=== PATIENT | female | born 1945 | race Caucasian/White ===

== ENCOUNTER → 2019-07-29 | Outpatient (REF) | payer MEDICARE, OTHER ==
[~2019-07-29] MED LIST: ATEN25TA PO; COUM2.5T17 PO; OMEP40CA2 PO; PERCOCET PO; SUPECAP24 PO; TYLE167L PO; TYLENOL XS; VITA100067 PO; [UNRECOGNIZED DRUG - OTHER] PO
[2019-07-29 15:20] LABS: CPK CREATINE PHOSPHOKINASE 48 U/L (26-192); TOTAL PROTEIN 6.9 GM/DL (6.4-8.2)
[2019-07-29 15:38] LABS: TOTAL 25(OH) VITAMIN D 45.3 NG/ML (30.0-100.0); VITAMIN B12 LEVEL 307 PG/ML (247-911)
[2019-07-29 15:39] LABS: FOLATE > 24.0 NG/ML (>5.4)
[2019-08-01 09:58] LABS: ALBUMIN 3.53 GM/DL (3.29-5.55); ALBUMIN % 51.2 % (55.8-66.1); ALPHA-1-GLOBULIN % 5.4 % (2.9-4.9); ALPHA-1-GLOBULINS 0.37 GM/DL (0.17-0.41); ALPHA-2-GLOBULINS 0.68 GM/DL (0.42-0.99); ALPHA-2-GLOBULINS % 9.9 % (7.1-11.8); BETA-1-GLOBULINS 0.42 GM/DL (0.28-0.60); BETA-1-GLOBULINS % 6.1 % (4.7-7.2); BETA-2-GLOBULINS 0.43 GM/DL (0.19-0.55); BETA-2-GLOBULINS % 6.2 % (3.2-6.5); GAMMA GLOBULIN % 21.2 % (11.1-18.8); GAMMA GLOBULINS 1.46 GM/DL (0.65-1.58)
[2019-08-04 00:06] LABS: CERULOPLASMIN 20.5 mg/dL (19.0-39.0); VITAMIN B1 LEVEL WHOLE BLOOD 235.1 nmol/L (66.5-200.0); VITAMIN B6,PYRIDOXAL PHOSPHATE 11.1 ug/L (2.0-32.8); VITAMIN E(ALPHA TOCOPHEROL) 8.6 mg/L (9.0-29.0); VITAMIN E(GAMMA TOCOPHEROL) 1.4 mg/L (0.5-4.9)
== END ==
LOC: M LABNEURO 13:38
PROVIDERS: ATTEND Psychiatry & Neurology Neurology
DX: G62.9 Polyneuropathy, unspecified (principal)

== ENCOUNTER → 2019-09-04 | Outpatient (REF) | payer MEDICARE, OTHER ==
[~2019-09-04] MED LIST changes: -OMEP40CA2 PO; +OMEP40CA97 PO
[2019-09-05 07:41] LABS: TOTAL PROTEIN,RANDOM URINE 12.7 MG/DL (0.0-12.0); URINE TOTAL PROTEIN 12.7 MG/DL (0-12)
[2019-09-05 14:31] LABS: IMMUNOTYPING SERUM IGM ABNORMAL (NORMAL); IMMUNOTYPING SERUM KAPPA ABNORMAL (NORMAL)
[2019-09-05 14:52] LABS: UPEP INTERPRETATION NO M-SPIKE NOTED; URINE VOLUME RANDOM ML
== END ==
LOC: M LABNEURO 10:49
PROVIDERS: ATTEND Psychiatry & Neurology Neurology
DX: D47.2 Monoclonal gammopathy (principal)